=== PATIENT | male | born 1950 | race Caucasian/White ===

== ENCOUNTER 2019-06-19 04:37 | Emergency (ER) | payer MEDICARE ==
[~2019-06-19] VITALS: Ht 177.8 cm; Wt 97.5 kg
[2019-06-19 04:46] VITALS: Ht 177.8 cm; Wt 97.5 kg
[2019-06-19 05:15] LABS: BASOPHIL % 0.3 % (0-2); PLATELET COUNT 249 x10^3mcL (130-400)
[2019-06-19 05:21] LABS: CALCIUM 9.4 mg/dL (8.5-10.1); CARBON DIOXIDE 23.3 mmol/L (21-32); CHLORIDE SERUM 104 mmol/L (98-107); GFR1 > 60 mL/min; GLUCOSE SERUM 118 mg/dL (74-106); POTASSIUM SERUM 4.9 mmol/L (3.5-5.1); SODIUM SERUM 138 mmol/L (136-145)
[2019-06-19 05:32] VITALS: BP 148/103
[2019-06-19 05:41] LABS: ALBUMIN 3.9 g/dL (3.4-5.0); ALKALINE PHOSPHATASE 59 U/L (46-116); ALT/SGPT 28 U/L (16-63); AST/SGOT 35 U/L (15-37); BILIRUBIN TOTAL 0.38 mg/dL (0.20-1.00); TOTAL PROTEIN, SERUM 7.2 g/dL (6.4-8.2)
== END 2019-06-19 05:32 | disposition short-term general hospital (02) ==
LOC: ED 04:37
PROVIDERS: Emergency Medicine
DX: I21.19 ST elevation (STEMI) myocardial infarction involving other coronary artery of inferior wall (principal); I10 Essential (primary) hypertension
CPT/HCPCS: J2270; J2405; J3490; Q0092